=== PATIENT | male | born 1955 | race Caucasian/White ===

== ENCOUNTER 2016-06-03 09:09 | Emergency (ER) | payer OTHER ==
[2016-06-03 09:42] LABS: BASOPHIL 0.2 % (0-2); EOSINOPHIL 0.2 % (0-5); HGB 16.4 g/dl (13.2-18.0); LYMPHOCYTE 6.5 % (15-48); MCH 28.9 pg (25.0-31.0); MCHC 34.9 g/dL (32.0-36.0); MCV 82.7 fL (78.0-100.0); MONOCYTE 6.4 % (0-12); NEUTROPHIL 86.7 % (41-80); PLT 281 K/uL (150-400); RBC 5.68 M/uL (4.70-6.00); RDW 14.1 % (11.5-14.0); WBC 16.9 K/uL (4.0-10.5)
[2016-06-03 09:58] LABS: CKMB 2.13 ng/mL (0.97-4.94); TROPONIN T 0.04 ng/mL
[2016-06-03 11:08] LABS: ALBUMIN 4.3 g/dL (3.4-4.8); BILIRUBIN - TOTAL 0.4 mg/dL (0.1-1.0); CREATININE 1.7 mg/dL (0.7-1.2); GLOBULIN (CALCULATION) 3.6 g/dL (2.2-4.2); POTASSIUM 3.3 mmol/L (3.5-5.1); TOTAL PROTEIN 7.9 g/dL (6.4-8.3)
== END 2016-06-03 09:37 | disposition other institution (70) ==
LOC: FER 09:09
PROVIDERS: Emergency Medicine
DX: I62.9 Nontraumatic intracranial hemorrhage, unspecified (principal); I10 Essential (primary) hypertension; I48.91 Unspecified atrial fibrillation; F17.200 Nicotine dependence, unspecified, uncomplicated
CPT/HCPCS: 36415; 70450; 71010; 80053; 80061; 82550; 82553; 83874; 84484; 85025; J2060